=== PATIENT | female | born 1965 | race Hispanic/Latino ===

== ENCOUNTER 2017-08-24 16:38 | Emergency (ER) | payer OTHER ==
[2017-08-24 16:48] VITALS: TEMP 98.9; O2SAT 98
--- NOTE | 2017-08-24 17:13 | ED PDOC ---
HPI: General Adult Time Seen by Provider: 08/24/17 16:48 Chief Complaint (Nursing): Cough, Cold, Congestion History Per: Patient Additional Complaint(s): Pt. states she's had a non-productive cough x 10 days. She states she was taking Bactrim DS last week for 3 days for a UTI and not her cough. States her friend who is a dentist called in the Rx for her. Reports that she gets intermittent wheezing since then cough started. Denies fever, hemoptysis, chest pain, sick contacts, recent travel. Past Medical History Reviewed: Historical Data, Nursing Documentation, Vital Signs Vital Signs: Last Vital Signs Temp 98.9 F 08/24/17 16:43 Pulse 96 H 08/24/17 16:43 Resp 18 08/24/17 16:43 BP 135/79 08/24/17 16:43 Pulse Ox 98 08/24/17 17:14 - Medical History Other PMH: sarcoidosis - Surgical History Surgical History: - Family History Family History: States: No Known Family Hx - Immunization History Hx Tetanus Toxoid Vaccination: No Hx Influenza Vaccination: No Hx Pneumococcal Vaccination: No - Home Medications Home Medications: Ambulatory Orders Medication Instructions Recorded Control Pill 1 tab PO DAILY 11/14/15 Metoclopramide Hydrochloride 10 mg PO TID PRN #15 tab 11/14/15 [Reglan] Albuterol HFA [Ventolin HFA 90 2 puff IH [id number] PRN #60 puff 08/24/17 mcg/actuation (8 g)] Azithromycin [Zithromax] 250 mg PO DAILY #6 tab 08/24/17 Benzonatate [Tessalon Perle] 100 mg PO Q8 PRN #30 capsule 08/24/17 - Allergies Allergies/Adverse Reactions: Allergies Allergy/AdvReac Type Severity Reaction Status Date / Time codeine AdvReac VOMITING Verified 06/23/16 05:27 Review of Systems ROS Statement: Except As Marked, All Systems Reviewed And Found Negative Respiratory: Positive for: Cough, Wheezing Physical Exam - Physical Exam Appears: Positive for: Well, Non-toxic, No Acute Distress Skin: Positive for: Normal Color, Warm. Negative for: Rash Eye Exam: Positive for: Normal appearance, EOMI, PERRL ENT: Positive for: Normal ENT Inspection. Negative for: Pharyngeal Erythema, Tonsillar Exudate, Tonsillar Swelling Neck: Positive for: Normal, Painless ROM Cardiovascular/Chest: Positive for: Regular Rate, Rhythm Respiratory: Positive for: Normal Breath Sounds. Negative for: Accessory Muscle Use, Wheezing, Respiratory Distress Gastrointestinal/Abdominal: Positive for: Normal Exam, Soft. Negative for: Tenderness Back: Positive for: Normal Inspection. Negative for: L CVA Tenderness, R CVA Tenderness Extremity: Positive for: Normal ROM Neurologic/Psych: Positive for: Alert, Oriented. Negative for: Aphasia, Facial Droop - ECG O2 Sat by Pulse Oximetry: 98 - Radiology X-Ray: Interpreted by Me (CXR) X-Ray Interpretation: No Acute Disease Disposition - Clinical Impression Clinical Impression: Acute bronchitis - Patient ED Disposition Is Patient to be Admitted: No - Disposition Disposition: Routine/Home Disposition Time: 17:53 Condition: STABLE Prescriptions: Albuterol HFA [Ventolin HFA 90 mcg/actuation (8 g)] 2 puff IH [id number] PRN #60 puff PRN Reason: Cough Azithromycin [Zithromax] 250 mg PO DAILY #6 tab Benzonatate [Tessalon Perle] 100 mg PO Q8 PRN #30 capsule PRN Reason: Cough Instructions: Acute Bronchitis (ED) Forms: [employer] (Welsh)
[2017-08-24 18:08] VITALS: BP 125/79; PULSE 85; RESP 14
--- NOTE | 2017-08-25 13:24 | RAD ---
HISTORY: cough COMPARISON: No prior. TECHNIQUE: Chest PA and lateral FINDINGS: LUNGS: No active pulmonary disease. PLEURA: No significant pleural effusion identified. No pneumothorax apparent. CARDIOVASCULAR: Normal. OSSEOUS STRUCTURES: No significant abnormalities. VISUALIZED UPPER ABDOMEN: Normal. OTHER FINDINGS: None. IMPRESSION: No interval acute cardiopulmonary disease appreciated.
== END 2017-08-24 18:07 | disposition home or self-care (01) ==
LOC: H.ER 16:38
DX: J20.9 Acute bronchitis, unspecified (principal); D86.9 Sarcoidosis, unspecified

== ENCOUNTER 2017-11-18 00:23 | Emergency (ER) | payer OTHER ==
[2017-11-18 00:56] VITALS: BMI 23.4
[2017-11-18 01:15] VITALS: BP 116/75; PULSE 85; RESP 16; TEMP 98.3; O2SAT 100
--- NOTE | 2017-11-19 04:29 | ED PDOC ---
HPI: General Adult Time Seen by Provider: 11/18/17 00:47 Chief Complaint (Nursing): Flu-like Symptoms Chief Complaint (Provider): Flu-like symptoms History Per: Patient History/Exam Limitations: no limitations Onset/Duration Of Symptoms: Days (x 1) Current Symptoms Are (Timing): Still Present Additional Complaint(s): Krystina is a 52 year old who presents to the emergency department with generalized malaise, headache, and dizziness, onset tonight. Patient brought son for flu-like symptoms and tested (+) for flu. Patient denies nausea or vomiting. Patient reports low-grade fever. PMD: No Family Provider Past Medical History Reviewed: Historical Data, Nursing Documentation, Vital Signs Vital Signs: Last Vital Signs Temp 98.3 F 11/18/17 01:13 Pulse 85 11/18/17 01:13 Resp 16 11/18/17 01:13 BP 116/75 11/18/17 01:13 Pulse Ox 100 11/19/17 04:34 - Medical History PMH: No Chronic Diseases Other PMH: neurosarcoidosis - Surgical History Surgical History: Other surgeries: Brain surgery - Family History Family History: States: Unknown Family Hx - Social History Current smoker - smoking cessation education provided: No Alcohol: None Drugs: Denies - Immunization History Hx Tetanus Toxoid Vaccination: No Hx Influenza Vaccination: No Hx Pneumococcal Vaccination: No - Home Medications Home Medications: Ambulatory Orders Medication Instructions Recorded Control Pill 1 tab PO DAILY 11/14/15 Metoclopramide Hydrochloride 10 mg PO TID PRN #15 tab 11/14/15 [Reglan] Albuterol HFA [Ventolin HFA 90 2 puff IH [id number] PRN #60 puff 08/24/17 mcg/actuation (8 g)] Azithromycin [Zithromax] 250 mg PO DAILY #6 tab 08/24/17 Benzonatate [Tessalon Perle] 100 mg PO Q8 PRN #30 capsule 08/24/17 Oseltamivir [Tamiflu] 75 mg PO BID #10 cap 11/18/17 - Allergies Allergies/Adverse Reactions: Allergies Allergy/AdvReac Type Severity Reaction Status Date / Time codeine AdvReac VOMITING Verified 06/23/16 05:27 Review of Systems ROS Statement: Except As Marked, All Systems Reviewed And Found Negative Constitutional: Positive for: Fever (low-grade), Weakness Gastrointestinal: Negative for: Nausea, Vomiting Neurological: Positive for: Headache, Dizziness Physical Exam - Reviewed Nursing Documentation Reviewed: Yes Vital Signs Reviewed: Yes - Physical Exam Appears: Positive for: Non-toxic Head Exam: Positive for: ATRAUMATIC, NORMAL INSPECTION, NORMOCEPHALIC Skin: Positive for: Normal Color, Warm, Dry Eye Exam: Positive for: Normal appearance, EOMI, PERRL ENT: Positive for: Normal ENT Inspection Neck: Positive for: Normal Cardiovascular/Chest: Positive for: Regular Rate, Rhythm Respiratory: Positive for: Normal Breath Sounds. Negative for: Respiratory Distress Gastrointestinal/Abdominal: Positive for: Normal Exam Neurologic/Psych: Positive for: Alert, Oriented - ECG O2 Sat by Pulse Oximetry: 100 (RA) Pulse Ox Interpretation: Normal Medical Decision Making Medical Decision Making: Time: 00:56 Plan: - Tamiflu Cap Upon provider evaluation patient is medically stable, and requires no further treatment in the ED at this time. Patient will be discharged with Rx for Tamiflu. Counseling was provided and all questions were answered regarding diagnosis and need for follow up with PCP. There is agreement to discharge plan. Return if symptoms persist or worsen. Scribe Attestation: Documented by Amado Fuchs, acting as a scribe for Walker Childers MD Provider Scribe Attestation: All medical record entries made by the Scribe were at my direction and personally dictated by me. I have reviewed the chart and agree that the record accurately reflects my personal performance of the history, physical exam, medical decision making, and the department course for this patient. I have also personally directed, reviewed, and agree with the discharge instructions and disposition. Disposition - Clinical Impression Clinical Impression: Influenza - Patient ED Disposition Is Patient to be Admitted: No - Disposition Referrals: Soco Ly MD [Primary Care Provider] - Disposition: Routine/Home Disposition Time: 01:26 Condition: STABLE Prescriptions: Oseltamivir [Tamiflu] 75 mg PO BID #10 cap Instructions: Influenza (ED) Forms: [facility] ([place])
== END 2017-11-18 01:17 | disposition home or self-care (01) ==
LOC: H.ER 00:23
DX: J11.1 Influenza due to unidentified influenza virus with other respiratory manifestations (principal); Z88.5 Allergy status to narcotic agent

== ENCOUNTER 2018-04-28 11:57 | Emergency (ER) | payer OTHER ==
[2018-04-28 12:03] VITALS: BMI 23.8
[2018-04-28 12:18] VITALS: RESP 18; O2SAT 99
[2018-04-28 12:43] VITALS: BP 120/71; PULSE 78; TEMP 98
--- NOTE | 2018-04-28 13:05 | ED PDOC ---
HPI: Psych/Substance Abuse Time Seen by Provider: 04/28/18 12:08 Chief Complaint (Nursing): Psychiatric Evaluation Chief Complaint (Provider): Psychiatric Evaluation History Per: Patient History/Exam Limitations: no limitations Suicide/Self Injury Attempted (Context): None Modifying Factor(s): None Associated Symptoms: denies: Suicidal Thoughts, Suicidal Plan Additional Complaint(s): 52 year old female presents to the emergency department for a psychiatric evaluation. Patient reports that earlier today she was on the phone with her social welfare administrator trying to obtain food stamps when she was told that she would only be getting 15 dollars per month. She states that this caused her to become upset and she verbalized that she felt overwhelmed and just could not take it anymore. Patient reports that she does not want to hurt herself or anyone else. She offers no medical complaints at this time. Past Medical History Reviewed: Historical Data, Nursing Documentation, Vital Signs Vital Signs: Last Vital Signs Temp 98 F 04/28/18 12:42 Pulse 78 04/28/18 12:42 Resp 18 04/28/18 12:42 BP 120/71 04/28/18 12:42 Pulse Ox 99 04/28/18 12:42 - Medical History PMH: No Chronic Diseases - Surgical History Surgical History: - Family History Family History: States: Unknown Family Hx - Living Arrangements Living Arrangements: With Family - Social History Ex-Smoker (has not smoked in the last 12 months): No Alcohol: None Drugs: Denies - Immunization History Hx Tetanus Toxoid Vaccination: No Hx Influenza Vaccination: No Hx Pneumococcal Vaccination: No - Home Medications Home Medications: Ambulatory Orders Medication Instructions Recorded Control Pill 1 tab PO DAILY 11/14/15 Metoclopramide Hydrochloride 10 mg PO TID PRN #15 tab 11/14/15 [Reglan] Albuterol HFA [Ventolin HFA 90 2 puff IH [id number] PRN #60 puff 08/24/17 mcg/actuation (8 g)] Azithromycin [Zithromax] 250 mg PO DAILY #6 tab 08/24/17 Benzonatate [Tessalon Perle] 100 mg PO Q8 PRN #30 capsule 08/24/17 Oseltamivir [Tamiflu] 75 mg PO BID #10 cap 11/18/17 - Allergies Allergies/Adverse Reactions: Allergies Allergy/AdvReac Type Severity Reaction Status Date / Time codeine AdvReac VOMITING Verified 06/23/16 05:27 Review of Systems ROS Statement: Except As Marked, All Systems Reviewed And Found Negative Physical Exam - Reviewed Nursing Documentation Reviewed: Yes Vital Signs Reviewed: Yes - Physical Exam Appears: Positive for: Non-toxic, No Acute Distress Head Exam: Positive for: ATRAUMATIC, NORMAL INSPECTION, NORMOCEPHALIC Skin: Positive for: Normal Color, Warm, Dry. Negative for: Rash Eye Exam: Positive for: Normal appearance, EOMI, PERRL. Negative for: Nystagmus ENT: Positive for: Normal ENT Inspection. Negative for: Nasal Congestion, Tonsillar Exudate Neck: Positive for: Normal, Painless ROM, Supple Cardiovascular/Chest: Positive for: Regular Rate, Rhythm, Chest Non Tender. Negative for: Tachycardia Respiratory: Positive for: Normal Breath Sounds. Negative for: Rales, Rhonchi, Wheezing, Respiratory Distress Gastrointestinal/Abdominal: Positive for: Normal Exam, Bowel Sounds, Soft. Negative for: Tenderness, Mass, Guarding, Rebound Back: Positive for: Normal Inspection. Negative for: L CVA Tenderness, R CVA Tenderness Extremity: Positive for: Normal ROM. Negative for: Tenderness, Calf Tenderness , Deformity, Swelling Neurologic/Psych: Positive for: Alert, Oriented, Mood/Affect (calm/cooperative and happy), Gait. Negative for: Motor/Sensory Deficits - ECG O2 Sat by Pulse Oximetry: 99 (RA) Pulse Ox Interpretation: Normal Medical Decision Making Medical Decision Makin Initial Impression 52 year old female presenting for psychiatric evaluation Initial Plan: * Crisis Evaluation * 1:1 Observation * Reevaluation 1230 Patient evaluated by [facility]- chore worker who spoke with Dr. Mendoza and cleared patient for discharge. FRENCH CABAN, thank you for letting us take care of you today. Your provider was Dean Moran PA-C and you were treated for PSYCH EVAL: SI. The emergency medical care you received today was directed at your acute symptoms. If you were prescribed any medication, please fill it and take as directed. It may take several days for your symptoms to resolve. Return to the Emergency Department if your symptoms worsen, do not improve, or if you have any other problems. Please contact your doctor or call one of the physicians/clinics you have been referred to that are listed on the Patient Visit Information form that is included in your discharge packet. Bring any paperwork you were given at discharge with you along with any medications you are taking to your follow up visit. Our treatment cannot replace ongoing medical care by a primary care provider outside of the emergency department. Thank you for allowing the [facility] team to be part of your care today. Documented by Criss Aguilar acting as a scribe for Dean Moran PA-C. All medical record entries made by the Scribe were at my direction and personally dictated by me. I have reviewed the chart and agree that the record accurately reflects my personal performance of the history, physical exam, medical decision making, and the department course for this patient. I have also personally directed, reviewed, and agree with the discharge instructions and disposition. Disposition - Clinical Impression Clinical Impression: Adjustment disorder - Patient ED Disposition Is Patient to be Admitted: No Counseled Patient/Family Regarding: Studies Performed - Disposition Referrals: [facility] [Outside] [facility] [Outside] Disposition: Routine/Home Disposition Time: 12:42 Condition: STABLE Instructions: Adjustment Disorder Forms: [facility] (Polish) Print Language: BENGALI
== END 2018-04-28 12:42 | disposition home or self-care (01) ==
LOC: H.ER 11:57
DX: F43.20 Adjustment disorder, unspecified (principal); Z87.891 Personal history of nicotine dependence; Z88.5 Allergy status to narcotic agent